=== PATIENT | female | born 1990 | race Hispanic/Latino ===

== ENCOUNTER 2020-04-02 11:07 | Day surgery (SDC) | payer OTHER ==
[2020-04-02 11:54] VITALS: BP 120/73; TEMP 98.1; BMI 33.3
[2020-04-02] MEDS ORDERED: hydrALAZINE 20 MG/ML VIAL SLOW IVP PRN (12:23)
[2020-04-02] MEDS ORDERED: diphenhydrAMINE 50 MG CAP PO ONE (12:25)
[2020-04-02] MEDS ORDERED: Metoclopramide 10 MG/10 ML UDCUP PO SCH (12:25)
--- NOTE | 2020-04-02 12:28 | PDOC.FPROB ---
FMR OB H&P: HPI - History of Present Illness Chief Complaint: Elevated BP Indentification: 29 yo G 3P2 @ 38.5 weeks presents for elevated BP at home. History of Present Illness: 29 yo @ 38.5 presents for elevated BP at home reportedly 164/100. She reports headache; however, has history of headaches this . She additionally reports mild abd pain down low and up top with infrequent contractions. Denies LOF, denies vag bleeding and DC. Reports Pos FM. Denies CP , SOB, NVDC. Primary Care Physician: Shila FMR OB H&P: Current - Care : 3 Para: 2 Gestational age: 38.5 Due date: 04/11/2020 - OB Labs Blood type: unknown RH: unknown Antibody Screen: unknown HIV: unknown RPR: unknown HepBsAg: unknown Rubella: immune Quad screen: unknown Gonorrhea: unknown Chlamydia: unknown GBS: negative FMR OB H&P: History - Past Medical History PMH: NA - OB History OB History: Prio preeclampsia with severe features - Surgical History Sx History: None - Social History Social History: Denies etoh, tobacco and drug use FMR OB H&P: Medications - Current Home Medications: Medication Instructions Recorded Confirmed Type Iron 18 mg PO DAILY 04/02/20 04/02/20 History Pnv No.95/Ferrous Fum/Folic AC 1 tablet PO DAILY 04/02/20 04/02/20 History [ Tablet] Sertraline HCl [Zoloft] 50 mg PO DAILY 04/02/20 04/02/20 History Allergies/Adverse Reactions: Allergies Allergy/AdvReac Type Severity Reaction Status Date / Time reinier Allergy Verified 04/02/20 11:56 FMR OB H&P: ROS - Review of Systems General: denies: fever/chills Eyes: denies: eye pain, vision changes, scotomas ENT: denies: nasal congestion Cardiovascular: reports: edema Respiratory: denies: cough, congestion, shortness of breath Gastrointestinal: reports: abdominal pain Genitourinary (Female): denies: dysuria, vaginal pain, vaginal bleeding, vaginal pressure Musculoskeletal: denies: pain Neurologic: denies: numbness, syncope, seizures, weakness Integumentary: denies: itching Hematologic/Lymphatic: denies: prolonged or excessive bleeding FMR OB H&P: Vital Signs - Maternal Vital signs: Vital Signs - First Documented Temp Pulse Resp BP Pulse Ox 98.1 F 118 H 18 120/73 98 04/02/20 11:34 04/02/20 11:34 04/02/20 11:34 04/02/20 11:34 04/02/20 11:34 - Heart Tones Baseline: 140 Variability: moderate Acceleration: present Deceleration: absent Category: category 1 [place] contractions every: Rare/Few FMR OB H&P: Physical Exam - Physical Exam General: NAD, awake, alert and oriented HEENT: normocephalic and atraumatic, PERRLA, EOMI, MMM, conjunctiva clear, no scleral icterus, grossly normal vision Neck: supple, trachea midline Heart: RRR, normal S1/S2, no edema General: CTAB, no respiratory distress, good air movement, no rales/rhonchi Abdomen: soft, gravid, non-tender, bowel sound present Neurological: DTR +2, no clonus, no tremor, no focal deficit Skin: no rash Lymphatic: no unusual bruising or bleeding, no purpura, no LAD Psychiatric: normal mood and affect - Pelvic Exam Vulva: normal hair distribution Cervix: no blood Estimated Weight: 7 lbs FMR OB H&P: A/P - Problem List (1) Elevated blood pressure affecting in third trimester, antepartum Status: Acute Code(s): O16.3 - UNSPECIFIED MATERNAL HYPERTENSION, THIRD TRIMESTER Discussion: Date/Time: 04/02/20 1227 This H&P was discussed with Dr. Mann who agree with the above documentation and plan. 1) Elevated BP reading at home; - pree labs negative - normotensive after prolonged monitoring - pt had elevated hoem bp readings in the past and pcp recommended bp cuff recalibration - pre e return precautions provided - plan to DC to home Dispo: stable, prolonged monitoring showed normotensive, pre e labs negative. F/ U with PCP at regularly scheduled appt. Addendum - Attending - Attending Attestation Date/Time: 04/02/201953 I personally evaluated the patient and discussed the management with Dr. Kaplan. I agree with the History, Examination, Assessment and Plan documented above.
[2020-04-02] MEDS ORDERED: diphenhydrAMINE 50 MG CAP PO SCH (12:30)
[2020-04-02 13:09] LABS: Creatinine, Urine Less than 20.00 mg/dL (47-110); Protein, Urine Random Quant Less than 10 mg/dL (1-14)
[2020-04-02 13:53] LABS: #Eosinphils 0.1 thou/uL (0.0-0.7); #Lymphocytes 1.5 thou/uL (1.20-3.40); #Monocytes 0.6 thou/uL (0.11-0.59); #Neutrophils 4.6 thou/uL (1.40-6.50); %Eosinophils 1.4 % (0.0-10.0); %Lymphocytes 22.4 % (21.0-51.0); %Monocytes 8.2 % (0.0-10.0); Hemoglobin 9.9 g/dL (12.0-16.0); Mean Corpuscular HGB CONC 34.6 g/dL (32.0-36.0); Mean Corpuscular Hemoglobin 29.9 pg (27.0-31.0); Mean Corpuscular Volume 86.4 fL (78.0-98.0); Mean Platelet Volume 8.5 fL (7.4-10.4); Platelet Count 223 thou/uL (130-400); RBC Distribution Width 13.3 % (11.5-14.5); Red Blood Cell (RBC) Count 3.33 mill/uL (4.20-5.40); White Blood Cell (WBC) Count 6.7 thou/uL (4.8-10.8)
[2020-04-02 14:20] LABS: ALT (SGPT) 8 U/L (8-55); AST (SGOT) 13 U/L (5-34); Albumin 3.3 g/dL (3.5-5.0); Alkaline Phosphatase 199 U/L (40-110); Anion Gap 13 mmol/L (10-20); BUN (Urea Nitrogen) 10 mg/dL (7.0-18.7); Bilirubin, Total 0.2 mg/dL (0.2-1.2); Calc. Creatinine Clearance 162 mL/min (70-130); Calcium 8.1 mg/dL (7.8-10.44); Carbon Dioxide 22 mmol/L (22-29); Chloride 107 mmol/L (98-107); Estimated GFR-MDRD Greater than 90; Globulin 2.6 g/dL (2.4-3.5); Glucose 95 mg/dL (70-105); Protein, Total 5.9 g/dL (6.0-8.3); Sodium 138 mmol/L (136-145)
== END 2020-04-02 14:49 | disposition home health service (06) ==
LOC: L&D/OP 11:07
PROVIDERS: ATTEND Obstetrics & Gynecology
DX: O16.3 Unspecified maternal hypertension, third trimester (principal); O99.89 Other specified diseases and conditions complicating pregnancy, childbirth and the puerperium; R51 Headache; R10.10 Upper abdominal pain, unspecified; R10.30 Lower abdominal pain, unspecified; Z3A.38 38 weeks gestation of pregnancy; Z79.899 Other long term (current) drug therapy; Z91.018 Allergy to other foods
CPT/HCPCS: 36415; 80053; 82570; 84156; 85025; 99284; Q0163

== ENCOUNTER 2020-04-05 14:09 | Day surgery (SDC) | payer OTHER ==
[2020-04-05 15:01] VITALS: BMI 33.6
[2020-04-05 15:07] VITALS: BP 117/68; TEMP 98.1
[2020-04-05] MEDS ORDERED: hydrALAZINE 20 MG/ML VIAL SLOW IVP PRN (16:40)
--- NOTE | 2020-04-05 17:11 | PRG ---
DATE OF SERVICE: 04/05/2020 PRIMARY OB: Dr. Keyl Fuchs. CHIEF COMPLAINT: Swelling and elevated pressures. HISTORY OF PRESENT ILLNESS: The patient is a 29-year-old G4, P2 female with an intrauterine at 38 weeks and a day, presenting to Labor and Delivery after calling her doctor's office with complaints of some mildly elevated blood pressures at home and some generalized swelling. The patient was here a few days ago with similar complaints and her workup then included PIH workup with labs including urine, all within normal limits. The patient has been here for the last hour and a half, going on 2 hours and has had all completely normal blood pressures, systolic pressures in the one teens, diastolic pressures in the 60s and 70s. The patient reports that she notices some swelling in her hands and in her face, and is feeling pressure. She also reports she is having some pain with activity and movement such as getting out of bed, rolling over in bed, down in her lower pelvis. She denies fever, cough, current headache, chest pain, shortness of breath, nausea, vomiting, diarrhea, constipation, hip problems, knee problems, muscle weakness. Denies any new rashes. Denies vaginal bleeding, leakage of fluid, urinary urgency or frequency. PAST MEDICAL HISTORY: Negative. PAST SURGICAL HISTORY: She has had 2 prior C-sections. SOCIAL HISTORY: Denies drug, alcohol, tobacco use. ALLERGIES: NO KNOWN DRUG ALLERGIES. MEDICATIONS: vitamins. OB LABS: Blood type is O positive. Antibody screen is negative. Hepatitis B surface antigen is negative. HIV is negative. She is rubella nonimmune and is GBS negative. REVIEW OF SYSTEMS: Per HPI. PHYSICAL EXAMINATION: VITAL SIGNS: In HPI, also most recent blood pressure is 116/71, heart rate of 79, saturating 99% on room air, temperature 98, respiratory rate of 20. GENERAL: She appears to be in no acute distress. She is alert, oriented, cooperative, and pleasant to interact with. HEENT: Head is normocephalic, atraumatic. LUNGS: Clear to auscultation bilaterally. HEART: Has a regular rate and rhythm. ABDOMEN: Gravid, soft, nontender. EXTREMITIES: Nontender, nonedematous with some minimal edema bilateral and symmetrical. : Cervix is fingertip, thick, and high, very posterior. Fetus has a baseline in the 130s with moderate long-term variability, positive 15 x 15 accelerations, no decelerations. Tocometer showing some irritability, but no regular contraction pattern. ASSESSMENT AND PLAN: The patient is a 29-year-old G4, P2 female with an intrauterine at 38 weeks and a day. We have been unable to reproduce any remotely elevated blood pressures over the last hour and half to 2 hours. The patient has been counseled to follow up with her primary OB as scheduled on and to take her blood pressure cuff to compare the results in the office. Fetus has a category 1 tracing and reactive NST. The patient has some ligamentous pain causing her discomfort of the pelvis, but no evidence of labor. Job ID: [id number]
== END 2020-04-05 16:42 | disposition home or self-care (01) ==
LOC: L&D/OP 14:09
PROVIDERS: ATTEND Obstetrics & Gynecology
DX: O99.89 Other specified diseases and conditions complicating pregnancy, childbirth and the puerperium (principal); R03.0 Elevated blood-pressure reading, without diagnosis of hypertension; R60.1 Generalized edema; O34.219 Maternal care for unspecified type scar from previous cesarean delivery; Z3A.38 38 weeks gestation of pregnancy; Z91.018 Allergy to other foods
CPT/HCPCS: 99283

== ENCOUNTER 2020-04-07 12:12 | Outpatient (CLI) | payer OTHER ==
[2020-04-08 14:26] LABS: SARS-CoV-2 MS2 Positive; SARS-CoV-2 N Gene Negative; SARS-CoV-2 S Gene Negative; SARS-CoV-2 orf1ab Negative
== END 2020-04-07 12:13 | disposition home or self-care (01) ==
LOC: SCSLAB 12:12
PROVIDERS: ATTEND Obstetrics & Gynecology
DX: Z01.812 Encounter for preprocedural laboratory examination (principal); Z11.59 Encounter for screening for other viral diseases
CPT/HCPCS: 87635; U0003

== ENCOUNTER 2020-04-11 09:54 | Inpatient (IN) | payer OTHER ==
[~2020-04-11 09:54] MED LIST: Metoclopramide HCl 10 MG TAB PO ONE; diphenhydrAMINE 50 MG CAP PO SCH; hydrALAZINE 20 MG/ML VIAL SLOW IVP PRN
[2020-04-11] MEDS: Lactated Ringer's 1,000 ML IV SCH ×2 (10:42→11:33)
[2020-04-11 10:56] VITALS: BMI 34.4
[2020-04-11] MEDS ORDERED: Bicitra 30 ML UDCUP PO SCH (11:00)
[2020-04-11 11:20] LABS: Hemoglobin 11.2 g/dL (12.0-16.0); Mean Corpuscular Hemoglobin 29.2 pg (27.0-31.0); Mean Corpuscular Volume 85.7 fL (78.0-98.0); Mean Platelet Volume 8.4 fL (7.4-10.4); Platelet Count 232 thou/uL (130-400); RBC Distribution Width 13.8 % (11.5-14.5); Red Blood Cell (RBC) Count 3.83 mill/uL (4.20-5.40); White Blood Cell (WBC) Count 6.5 thou/uL (4.8-10.8)
[2020-04-11] MEDS ORDERED: Ondansetron PF 4 MG/2 ML Vial IVP PRN ×3 (11:47→13:06)
[2020-04-11] MEDS ORDERED: hydrALAZINE 20 MG/ML VIAL SLOW IVP PRN ×2 (11:47→13:06)
[2020-04-11] MEDS ORDERED: Promethazine HCl 25 MG/ML VIAL IM PRN ×2 (11:47→12:49)
[2020-04-11] MEDS: CEFAZOLIN 2 GM in Premix Bag 1 BAG IVPB SCH ×2 (11:49→11:50)
[2020-04-11] MEDS ORDERED: Oxytocin 10 UNITS/ML VIAL ONE ×2 (11:58→12:00)
[2020-04-11] MEDS ORDERED: MORPHINE 5 MG/10 ML PF VIAL ONE (11:58)
[2020-04-11] MEDS ORDERED: Ondansetron PF 4 MG/2 ML Vial ONE (11:58)
[2020-04-11] MEDS ORDERED: PHENYLEPHRINE-NS 100 MCG/ML 10 ML SYRINGE ONE (11:58)
[2020-04-11] MEDS ORDERED: EPHEDRINE 25 MG/5 ML SYRINGE ONE (11:58)
[2020-04-11 12:03] LABS: Syphilis Antibody Nonreactive (Nonreactive); Syphilis Antibody Index 0.04 S/CO (<1.00 Non-Reactive)
[2020-04-11 12:04] LABS: HIV (1/2) Antibody/Antigen Non-Reactive (NonReactive); HIV 1/2 INDEX 0.07 S/CO (<1.00)
[2020-04-11 12:42] LABS: HBSAg Index 0.16 S/CO (0-0.99); Hep B Surf Ag Non-Reactive S/CO (NonReactive)
[2020-04-11] MEDS ORDERED: Ketorolac Tromethamine 30 MG/ML VIAL ONE (12:44)
[2020-04-11] MEDS ORDERED: Ondansetron HCl/PF 4 MG/2 ML Vial IVP PRN (12:49)
[2020-04-11] MEDS ORDERED: Ketorolac Tromethamine 30 MG/ML VIAL IVP PRN (12:49)
[2020-04-11] MEDS ORDERED: diphenhydrAMINE 50 MG/ML VIAL IVP PRN (12:49)
[2020-04-11] MEDS ORDERED: Naloxone HCl 0.4 mg/ml Vial IV PRN (12:49)
[2020-04-11] MEDS ORDERED: HYDROmorphone 2 MG/ML VIAL SLOW IVP PRN (12:49)
[2020-04-11] MEDS ORDERED: Meperidine HCl/PF 25 MG/ML VIAL SLOW IVP PRN (12:49)
[2020-04-11] MEDS ORDERED: Promethazine HCl 25 MG SUPP PR PRN (12:49)
[2020-04-11] MEDS ORDERED: L&D-Morphine 4 MG/ML VIAL SLOW IVP PRN (12:49)
[2020-04-11] MEDS ORDERED: Naloxone HCl 0.4 mg/ml Vial IVP PRN ×2 (12:49)
[2020-04-11] MEDS ORDERED: Ketorolac Tromethamine 30 MG/ML VIAL IVP SCH (13:00)
[2020-04-11] MEDS ORDERED: Communication Order-Pharmacy FS SCH (13:00)
[2020-04-11] MEDS ORDERED: diphenhydrAMINE 25 MG CAP PO PRN (13:06)
[2020-04-11] MEDS ORDERED: Lanolin Ointment 7 GM TUBE TOP PRN (13:06)
[2020-04-11] MEDS ORDERED: Adacel (T-DAP) 0.5 ML SYRINGE IM ONE (13:06)
[2020-04-11] MEDS ORDERED: Acetaminophen 325 MG TAB PO PRN (13:06)
[2020-04-11] MEDS ORDERED: Simethicone Chewable 80 MG TAB PO PRN (13:06)
[2020-04-11] MEDS: Ferrous Sulfate 325 MG TAB PO SCH (18:14)
[2020-04-11] MEDS: Docusate Calcium (SURFAK) 240 MG CAP PO SCH (20:42)
--- NOTE | 2020-04-11 20:57 | OP ---
DATE OF PROCEDURE: 04/11/2020 PREOPERATIVE DIAGNOSES: 1. A 29-year-old female, G3, P3, prior two C-sections. 2. 39+ weeks' gestation for repeat . POSTOPERATIVE DIAGNOSES: 1. A 29-year-old female, G3, P3, prior two C-sections. 2. 39+ weeks' gestation for repeat . PROCEDURE PERFORMED: Repeat low transverse section without extension. FLAME ANNEALING MACHINE SETTER SURGEON: Victoria Berrios PA-C ANESTHESIA: Spinal block. ESTIMATED BLOOD LOSS: 650 mL. COMPLICATIONS: None. COUNTS: Correct x2. ANTIBIOTICS: 2 g Ancef on-call to OR. FINDINGS: 1. Vigorous female infant, vertex presentation, clear amniotic fluid noted. Apgars 8 and 9. weight 7 pounds 11 ounces. 2. Normal-appearing fallopian tubes, uterus, and ovaries. DISPOSITION: Recovery room, stable. DESCRIPTION OF PROCEDURE: The patient previously received informed consent in regard to surgery. She was taken back to the operating room, where she received a spinal block without complications. She was then placed in a supine position and prepped and draped in usual sterile fashion. SCDs and Coleman catheter had been placed. A Pfannenstiel incision was made through the previous scar site. It was carried down the fascia. Fascia was nicked in the midline. Fascial incision was extended bilaterally using curved Capone scissors. The rectus fascia was dissected superiorly and inferiorly off the rectus muscle bellies. The rectus muscle bellies were divided in the midline. Peritoneal cavity was entered. Peritoneal incision was extended. Federico O retractor was placed, size large, and then a bladder flap was created in usual fashion. A 2 cm hysterotomy incision was made in the lower uterine segment. This was extended via finger fractionation. The baby was delivered in the vertex presentation. Mouth and nares were bulb suctioned on the abdomen. The cord was doubly clamped and cut, and the baby was handed to the pediatric team in attendance. The usual cord blood was obtained. The placenta was manually extracted, and uterus was externalized. The uterus was curetted of any remaining placental fragments with a dry laparotomy sponge. The uterus was placed back into the abdomen. The hysterotomy incision then was closed in double-layer closure in running locking fashion, then the imbricating stitch following that. Good hemostasis was observed. The Federico O retractor was removed. The pelvis again was irrigated and suctioned. Hemostasis was confirmed. Rectus muscle bellies were inspected prior to fascial closure and they were noted to be hemostatic. The fascia was closed with 0 PDS suture x2 in a running continuous fashion. Subcutaneous tissue was irrigated, noted to be hemostatic prior to skin approximation with gris. There were no surgical or anesthetic complications. Job ID: [id number]
[2020-04-12] MEDS ORDERED: HYDROcodone/Acetaminophen 5/325 mg Tablet PO PRN (01:00)
[2020-04-12] MEDS ORDERED: Meperidine HCl/PF 25 MG/ML VIAL IM PRN (01:00)
[2020-04-12 06:01] LABS: Hemoglobin 9.2 g/dL (12.0-16.0); Mean Corpuscular HGB CONC 33.1 g/dL (32.0-36.0); Mean Corpuscular Hemoglobin 28.5 pg (27.0-31.0); Mean Platelet Volume 8.2 fL (7.4-10.4); Platelet Count 179 thou/uL (130-400); RBC Distribution Width 13.7 % (11.5-14.5); Red Blood Cell (RBC) Count 3.24 mill/uL (4.20-5.40); White Blood Cell (WBC) Count 8.7 thou/uL (4.8-10.8)
[2020-04-12] MEDS: Docusate Calcium (SURFAK) 240 MG CAP PO SCH (07:45)
[2020-04-12] MEDS: Ferrous Sulfate 325 MG TAB PO SCH (07:45)
[2020-04-12] MEDS: HYDROcodone/Acetaminophen 5/325 mg Tablet PO PRN ×2 (07:45→12:09)
--- NOTE | 2020-04-12 07:49 | PDOC.PP ---
Post Progress Note Post Day #: 1 PO intake tolerated: yes Flatus: yes Ambulation: yes Vital Signs (12 hours) Temp Pulse Resp BP Pulse Ox 04/12/20 04:00 98.7 F 92 16 110/66 04/11/20 23:58 98.9 F 87 18 126/69 04/11/20 20:00 98.5 F 82 16 118/80 98 Weight Weight 188 lb - Physical Examination Abdominal: + bowel sounds, no distention, appropriately TTP Extremities: negative homans (B) Result Diagrams: 04/12/20 05:50 Additional Labs: Post Labs Blood Type O POSITIVE 04/11/20 16:10 Hep Bs Antigen Non-Reactive S/CO (NonReactive) 04/11/20 11:00 - Assessment/Plan Post op day 1 from repeat c/s 33.. Doing well. Routine care. Anticipate discharge in AM.
[2020-04-12] MEDS ORDERED: Non-Formulary Item 1 EACH (Iron [Iron] 18 MG) PO SCH (09:00)
[2020-04-12] MEDS ORDERED: Non-Formulary Item 1 EACH (Pnv No.95/Ferrous Fum/Folic Ac [Prenatal Tablet] 1 TABLET) PO SCH (09:00)
[2020-04-12] MEDS ORDERED: Prenatal Vitamin 1 TAB PO SCH (09:00)
[2020-04-12 12:05] VITALS: BP 112/64; TEMP 98.4
[2020-04-12] MEDS ORDERED: Ibuprofen 800 MG TAB PO SCH (14:00)
== END 2020-04-12 15:20 | disposition home or self-care (01) | DRG 788 ==
LOC: L&D 09:54 → 3SW 15:47
PROVIDERS: ADMIT Obstetrics & Gynecology; ATTEND Obstetrics & Gynecology
PROC: 10D00Z1 Extraction of Products of Conception, Low, Open Approach (ICD-10-PCS; principal; 2020-04-11)
DX: O34.211 Maternal care for low transverse scar from previous cesarean delivery (principal); Z3A.39 39 weeks gestation of pregnancy; Z37.0 Single live birth
CPT/HCPCS: 36415; 51702; 85027; 86780; 86850; 86900; 86901; 87340; 87389; J0690; J1885; J2274; J2405; J2590